=== PATIENT | male | born 1990 | race Caucasian/White ===

== ENCOUNTER 2020-07-25 16:22 | Emergency (ER) | payer BC ==
--- NOTE | 2020-07-25 17:57 | RAD REPORT ---
EXAM DESCRIPTION: RAD - Hand Right 3 View - 07/25/2020 5:46 pm CLINICAL HISTORY: Right hand pain status post injury FINDINGS: No fracture or dislocation is seen. Soft tissue swelling third digit
--- NOTE | 2020-07-25 18:00 | ER ---
Nurse's Notes [facility] Name: Alexi Escalante Age: 30 yrs Sex: Male : 1990 Arrival Date: 07/25/2020 Time: 16:26 Bed 23 Private MD: Herber Ramirez R Diagnosis: Other sprain of right middle finger Presentation: 07/25 16:32 Chief complaint: Patient states: Hurt R middle finger playing basketball approx 1 month ph ago, states, " I thought it was jammed but it is still swollen.". Coronavirus screen: Client denies travel out of the [place] in the last 14 days. At this time, the client does not indicate any symptoms associated with coronavirus-19. Ebola Screen: No symptoms or risks identified at this time. Initial Sepsis Screen: Does the patient meet any 2 criteria? No. Patient's initial sepsis screen is negative. Does the patient have a suspected source of infection? No. Patient's initial sepsis screen is negative. Risk Assessment: Do you want to hurt yourself or someone else? Patient reports no desire to harm self or others. Onset of symptoms was July 25, 2020. 16:32 Method Of Arrival: Ambulatory ph 16:32 Acuity: [id number] 4 ph Triage Assessment: 16:42 General: . Injury Description:. ca1 Historical: - Allergies: 16:37 clindamycin HCl; ph - PMHx: 16:37 febrile seizures; Seizures; ph - PSHx: 16:37 ankle, right; ph - Immunization history:: Adult Immunizations unknown. - Social history:: Smoking status: Patient denies any tobacco usage or history of. Screenin:41 Abuse screen: Denies threats or abuse. Denies injuries from another. Nutritional ca1 screening: No deficits noted. Tuberculosis screening: No symptoms or risk factors identified. Fall Risk None identified. Assessment: 16:41 General: Appears in no apparent distress. comfortable, Behavior is calm, cooperative, ca1 appropriate for age. Pain: Complains of pain in dorsal aspect of middle phalanx of right middle finger, dorsal aspect of proximal phalanx of right middle finger, palmar aspect of middle phalanx of right middle finger and palmar aspect of proximal phalanx of right middle finger Pain currently is 0 out of 10 on a pain scale. at worst was 5 out of 10 on a pain scale. Pain began a month [employer]. Neuro: Level of Consciousness is awake, alert, obeys commands, Oriented to person, place, time, situation. Derm: Skin is intact, is healthy with good turgor, Skin is pink, warm \\T\\ dry. Musculoskeletal: Circulation, motion, and sensation intact. Capillary refill < 3 seconds. 17:45 Reassessment: Patient appears in no apparent distress at this time. Patient and/or ca1 family updated on plan of care and expected duration. Pain level reassessed. Patient is alert, oriented x 3, equal unlabored respirations, skin warm/dry/pink. Vital Signs: 16:32 BP 143 / 64; Pulse 73; Resp 18; Temp 97.8; Pulse Ox 99% on R/A; Weight 72.57 kg; Height ph 5 ft. 9 in. (175.26 cm); 17:45 BP 132 / 71; Pulse 83; Resp 16 S; Pulse Ox 99% on R/A; ca1 16:32 Body Mass Index 23.63 (72.57 kg, 175.26 cm) ph ED Course: 16:26 Patient arrived in ED. mr 16:27 Herber Ramirez MD is Private Physician. mr 16:36 Tiff Mcdaniel FNP-C is [facility]. kb 16:36 Moise Ingram MD is Attending Physician. kb 16:36 Triage completed. ph 16:36 Arm band placed on Patient placed in an exam room. ph 16:41 Tiff Bashir, RN is Primary Nurse. ca1 16:41 Patient has correct armband on for positive identification. Bed in low position. Call ca1 light in reach. Side rails up X 1. Pulse ox on. NIBP on. 17:46 Hand Right 3 View XRAY In Process Unspecified. EDMS 18:08 Patient did not have IV access during this emergency room visit. Aluminum finger splint ca1 applied to dorsal aspect of distal phalanx of right middle finger, dorsal aspect of middle phalanx of right middle finger, dorsal aspect of proximal phalanx of right middle finger, palmar aspect of distal phalanx of right middle finger, palmar aspect of middle phalanx of right middle finger and palmar aspect of proximal phalanx of right middle finger. 18:10 No provider procedures requiring assistance completed. ca1 Administered Medications: No medications were administered Outcome: 17:59 Discharge ordered by . angeli 18:10 Discharged to home ambulatory. ca1 18:10 Condition: stable 18:10 Discharge instructions given to patient, Instructed on discharge instructions, follow up and referral plans. Demonstrated understanding of instructions, follow-up care, splint care. 18:11 Patient left the ED. ca1 Signatures: Dispatcher [employer] EDMS Tiff Mcdaniel, CIVIL PREPAREDNESS TRAINING OFFICER-Arie CIVIL PREPAREDNESS TRAINING OFFICER-Mihir LacyGricelda cardoza mr Monique Grant RN RN Tiff Bashir RN RN ca1 Corrections: (The following items were deleted from the chart) 18:11 18:10 Discharge instructions given to patient, Instructed on discharge instructions, ca1 follow up and referral plans. Demonstrated understanding of instructions, follow-up care, ca1
--- NOTE | 2020-07-25 18:00 | EDPHYS ---
Physician Documentation [facility] Name: Alexi Escalante Age: 30 yrs Sex: Male : 1990 Arrival Date: 07/25/2020 Time: 16:26 Bed 23 Private MD: Herber Ramirez R ED Physician Moise Ingram HPI: 07/25 22:14 This 30 yrs old Male presents to ER via Ambulatory with complaints of Finger kb Injury. 22:14 The patient or guardian reports decreased range of motion, injury, pain, swelling. The kb complaints affect the dorsal aspect of middle phalanx of right middle finger and dorsal aspect of proximal phalanx of right middle finger. Context: The problem was sustained at a sports field or court, resulted from playing sports, basketball. Onset: The symptoms/episode began/occurred 1 month(s) ago. Modifying factors: The symptoms are alleviated by nothing, the symptoms are aggravated by nothing. Associated signs and symptoms: The patient has no apparent associated signs or symptoms. Severity of symptoms: At their worst the symptoms were moderate, in the emergency department the symptoms are unchanged. The patient has not experienced similar symptoms in the past. The patient has not recently seen a physician. Pt states he jammed his right middle finger while playing basketball a month ago. States he was just letting it heal on its own, but it is still swollen. Historical: - Allergies: 16:37 clindamycin HCl; ph - PMHx: 16:37 febrile seizures; Seizures; ph - PSHx: 16:37 ankle, right; ph - Immunization history:: Adult Immunizations unknown. - Social history:: Smoking status: Patient denies any tobacco usage or history of. ROS: 22:11 Constitutional: Negative for fever, chills, and weight loss, Skin: Negative for injury, kb rash, and discoloration, Neuro: Negative for headache, weakness, numbness, tingling, and seizure. 22:11 MS/extremity: Positive for injury or acute deformity, decreased range of motion, pain, swelling, of the dorsal aspect of middle phalanx of right middle finger and dorsal aspect of proximal phalanx of right middle finger. Exam: 22:11 Constitutional: This is a well developed, well nourished patient who is awake, alert, kb and in no acute distress. ENT: Moist Mucous membranes Respiratory: Respirations even and unlabored. No increased work of breathing, no retractions or nasal flaring. Skin: Warm, dry with normal turgor. Normal color. Neuro: Awake and alert, GCS 15, oriented to person, place, time, and situation. Moves all extremities. Normal gait. Psych: Awake, alert, with orientation to person, place and time. Behavior, mood, and affect are within normal limits. 22:11 Musculoskeletal/extremity: Extremities: grossly normal except: noted in the dorsal aspect of middle phalanx of right middle finger and dorsal aspect of proximal phalanx of right middle finger: decreased ROM, pain, swelling, ROM: limited active range of motion, in the dorsal aspect of middle phalanx of right middle finger and dorsal aspect of proximal phalanx of right middle finger, Circulation is intact in all extremities. Sensation intact. Vital Signs: 16:32 BP 143 / 64; Pulse 73; Resp 18; Temp 97.8; Pulse Ox 99% on R/A; Weight 72.57 kg; Height ph 5 ft. 9 in. (175.26 cm); 17:45 BP 132 / 71; Pulse 83; Resp 16 S; Pulse Ox 99% on R/A; ca1 16:32 Body Mass Index 23.63 (72.57 kg, 175.26 cm) ph MDM: 16:39 Patient medically screened. kb 17:58 Data reviewed: vital signs, nurses notes. Data interpreted: Pulse oximetry: on room air kb is 99 %. Interpretation: normal. Counseling: I had a detailed discussion with the patient and/or guardian regarding: the historical points, exam findings, and any diagnostic results supporting the discharge/admit diagnosis, radiology results, the need for outpatient follow up, a orthopedic surgeon, to return to the emergency department if symptoms worsen or persist or if there are any questions or concerns that arise at home. 07/25 16:39 Order name: Hand Right 3 View XRAY; Complete Time: 17:58 kb Administered Medications: No medications were administered Disposition: 18:52 Co-signature as Attending Physician, Moise Ingram MD. rn Disposition: 07/25/20 17:59 Discharged to Home. Impression: Other sprain of right middle finger. - Condition is Stable. - Discharge Instructions: Finger Sprain, [id number]. - Medication Reconciliation Form, Thank You Letter, Antibiotic Education, Prescription Opioid Use form. - Follow up: Emergency Department; When: As needed; Reason: Worsening of condition. Follow up: Private Physician; When: 2 - 3 days; Reason: Recheck today's complaints, Continuance of care, Re-evaluation by your physician. Signatures: Dispatcher [employer] EDIN Tiff Mcdaniel, FRIT BURNER-C FRIT BURNER-Ckb Moise Ingram MD MD rn Monique Grant RN RN Tiff Bashir RN RN ca1 Corrections: (The following items were deleted from the chart) 18:11 17:59 07/25/2020 17:59 Discharged to Home. Impression: Other sprain of right middle ca1 finger. Condition is Stable. Forms are Medication Reconciliation Form, Thank You Letter, Antibiotic Education, Prescription Opioid Use. Follow up: Emergency Department; When: As needed; Reason: Worsening of condition. Follow up: Private Physician; When: 2 - 3 days; Reason: Recheck today's complaints, Continuance of care, Re-evaluation by your physician. kb
[2020-07-25 18:16] VITALS: BP 143/64; TEMP 97.8; O2SAT 99
== END 2020-07-25 18:11 | disposition home or self-care (01) ==
LOC: ER 16:22
DX: S63.692A Other sprain of right middle finger, initial encounter (principal); Y93.64 Activity, baseball; Y92.320 Baseball field as the place of occurrence of the external cause; Z88.3 Allergy status to other anti-infective agents
CPT/HCPCS: 99283